=== PATIENT | female | born 2000 | race Caucasian/White ===

== ENCOUNTER 2020-12-26 09:40 | Emergency (ER) | payer OTHER, SELFPAY ==
--- NOTE | ~2020-12-26 | CT_ITS ---
EXAMINATION: CT abdomen pelvis w con EXAM DATE: 12/26/2020 10:53 INDICATION: Diarrhea and abdominal pain. TECHNIQUE: Spiral CT of the abdomen and pelvis was performed following intravenous injection of 100 m L Omnipaque 350. Axial, coronal and sagittal images were reviewed. The dose-length product (DLP) fo r this examination was 258.44 mGy-cm. The exposure was tailored according to patient size (auto mA e xposure control), and iterative reconstruction (ASIR) was used as additional dose reduction technique . There is no prior study for comparison. FINDINGS: The liver, spleen, adrenal glands and pancreas are unremarkable. Gallbladder is unremarkab le. No biliary obstruction. Portal and splenic veins are patent. Kidneys enhance symmetrically. T here is no hydronephrosis. The uterus is retroverted and morphologically normal. The bladder is u nremarkable. There is no retroperitoneal or pelvic lymphadenopathy. The appendix is normal. The stomach and small bowel are unremarkable. There is mild descending colo federico wall edema. There is rectosigmoid fluid, could be colitis and diarrhea. No free intraperitoneal gas. The heart is normal in size. There are no pericardial or pleural effusions. The lung bases are unremarkable. The bones are unremarkable. IMPRESSION: Findings consistent with descending colonic colitis, likely infectious. Diarrhea. Reviewed, dictated and finalized at location A. IMPRESSION: Findings consistent with descending colonic colitis, likely infecti ous. Diarrhea.
[2020-12-26 09:44] VITALS: BP 141/79; PULSE 86; RESP 20; TEMP 36.2; O2SAT 98
[2020-12-26 10:03] LABS: Basophils Percent Auto 0.4 % (0.2-1.2); Eosinophils Absolute Auto 0.2 K/mm3 (0-0.3); Eosinophils Percent Auto 1.7 % (0-4.4); Hematocrit 43.2 % (37.0-47.0); Hemoglobin 14.7 g/dL (12.0-15.0); Immature Granulocyte Absolute 0.02 K/mm3 (0.00-0.031); Immature Granulocyte Percent A 0.2 % (0-0.5); Lymphocytes Absolute Auto 2.12 K/mm3 (0.9-3.2); Lymphocytes Percent Auto 21.4 % (18.3-44.2); Mean Corpuscular Hemoglobin 28.9 pg (26-34); Mean Corpuscular Volume 84.9 fl (80-100); Mean Platelet Volume 10.1 fl (7.4-10.4); Monocytes Absolute Auto 0.7 K/mm3 (0.1-0.6); Monocytes Percent Auto 7.1 % (2.6-8.5); Neutrophils Absolute Auto 6.9 K/mm3 (1.3-6.7); Neutrophils Percent Auto 69.2 % (45.5-73.1); Platelet Count Result 346 k/mm3 (150-375); Red Blood Count 5.09 M/mm3 (4.2-5.4); White Blood Count 9.9 K/mm3 (4.5-10.0)
[2020-12-26 10:06] LABS: Add Urine Microscopic? YES; Appearance Urine Clear (Clear); Bilirubin Urine Negative (Negative); Blood Urine 1+ (Negative); Color Urine Yellow (Yellow); Glucose Urine UA Negative (Negative); Ketones Urine Negative (Negative); Leukocyte Esterase Ur Negative LEU/UL (Negative); Mucus Urine Rare /lpf; Nitrate Urine Negative (Negative); Protein Urine Negative (Negative); RBC Urine 0-2 /hpf (0-2); Specific Grav Ur 1.018 (1.001-1.035); Squamous Epithelial Cell Urine Rare /hpf (Few); Urobilinogen Urine Negative mg/dL (<2.0); WBC Urine 0-3 /hpf
[2020-12-26 10:15] LABS: Alanine Aminotransferase 16 U/L (4-35); Alkaline Phosphatase 47 U/L (38-126); Anion Gap 8 mmol/L (8-16); Aspartate Amino Transferase 25 U/L (14-36); Bilirubin,Total 0.6 mg/dL (0.2-1.3); Blood Urea Nitrogen 9 mg/dL (7-17); Calcium 9.2 mg/dL (8.4-10.2); Carbon Dioxide 29 mmol/L (22-30); Chloride 104 mmol/L (98-107); Estimated CRCL calculation 97 ml/min; Estimated Glomerular Filt Rate > 60; Glucose 93 mg/dL (65-105); Lipase 89 U/L (23-300); Sodium 141 mmol/L (137-145)
--- NOTE | 2020-12-26 11:13 | ED.GENADULT ---
HPI - General Adult General Chief complaint: Abdominal Pain Stated complaint: abd pain Time Seen by Provider: 12/26/20 09:50 Source: patient Mode of arrival: ambulatory Limitations: no limitations History of Present Illness HPI narrative: Patient presents with chief complaint of left lower abdominal pain that began last night. Patient states that she began having episodes of diarrhea initially began noticing blood in the diarrhea so she came to the emergency department. Patient denies fever, chills, nausea, vomiting. Patient states she has not had any episodes of diarrhea since being in emergency department. Patient denies having history of abdominal pain or diarrhea. Patient reports she takes control pills but denies any other daily medications or any chronic medical conditions. Patient denies any abdominal surgeries or complications in the past. Related Data Home Medications Medication Instructions Recorded Confirmed norgestimate-ethinyl estradiol tablet 12/26/20 [Tri-Linyah] Allergies Allergy/AdvReac Type Severity Reaction Status Date / Time No Known Allergies Allergy Verified 12/26/20 09:47 Review of Systems Review of Systems: Narrative: CONSTITUTIONAL: Denies fever, chills, or sweats. EYES: Denies visual changes, redness, or discharge. ENT: Denies rhinorrhea, congestion, sore throat, or otalgia. CARDIOVASCULAR: Denies chest pain, palpitations, or edema. RESPIRATORY: Denies cough or dyspnea. GASTROINTESTINAL: Reports left lower quadrant abdominal pain and diarrhea denies nausea, vomiting GENITOURINARY: Denies dysuria or hematuria. SKIN: Denies rash or itching. MUSCULOSKELETAL: Denies back pain, joint pain, or myalgia. NEUROLOGIC: Denies headache, numbness, dizziness, or weakness. PSYCHIATRIC: Denies anxiety or depression. [facility] Social History Social History Gender identity (if verbalized by the patient): Female Exam Narrative: Exam Narrative: GENERAL: Well-appearing, well-nourished, and in no acute distress. HEAD: Normocephalic, atraumatic. EYES: PERRLA and EOMI. ENT: Nares clear, no rhinorrhea or epistaxis. Mucous membranes moist. Oropharynx without tonsillar hypertrophy exudate or other lesions. Bilateral TMs pearly wyatt nonbulging NECK: Supple. No adenopathy or masses. Range of motion intact. CHEST: Clear to auscultation. No respiratory distress. No wheezes rales or rhonchi HEART: Regular rate and rhythm. No murmur heard. Normal peripheral pulses. ABDOMEN: Soft, tenderness palpation of the left lower quadrant, nondistended, normal active bowel sounds. EXTREMITIES: Normal range of motion. No edema. SKIN: Warm, dry, no rash. NEURO: No focal deficits. Alert and oriented x3. PSYCH: Normal mood and affect. Course Vital Signs Vital signs: Vital Signs Temperature 97.2 F L 12/26/20 09:44 Pulse Rate 86 12/26/20 09:44 Respiratory Rate 20 12/26/20 09:44 Blood Pressure 141/79 H 12/26/20 09:44 Pulse Oximetry 98 12/26/20 09:44 Temperature 98.2 F 12/26/20 11:36 Pulse Rate 76 12/26/20 11:36 Respiratory Rate 16 12/26/20 11:36 Blood Pressure 118/74 12/26/20 11:36 Pulse Oximetry 100 12/26/20 11:36 Medical Decision Making MDM Narrative Medical decision making narrative: Patient's white blood cell count and hemoglobin hematocrit are stable. Patient is stable and she is afebrile. Patient will be placed on Cipro and Flagyl and instructed to follow-up with primary care or GI specialist for further investigation. Hemoccult negative. Patient informed that if her symptoms persist she will need gi referrral for colonoscopy. Patient instructed to return to emergency department if she develops fever, chills, vomiting, profuse diarrhea or bleeding, or any other emergent symptoms. Differential Diagnosis Differential Diagnosis: Diverticulitis, colitis, viral gastroenteritis, kidney stone Vital Signs Vital Signs: Vital Signs Temperature 97.2 F L 12/26/20 09:44 Pulse
[2020-12-26 11:36] VITALS: BP 118/74; PULSE 76; RESP 16; TEMP 36.8; O2SAT 100
== END 2020-12-26 11:37 | disposition home or self-care (01) ==
PROVIDERS: Physician Assistant; Emergency Provider Emergency Medicine
DX: A09 Infectious gastroenteritis and colitis, unspecified (principal)
CPT/HCPCS: 36415; 74177; 80053; 81001; 81025; 83690; 85025; 96374; 99284; J0131; Q9967

== ENCOUNTER 2025-07-20 22:11 | Emergency (ER) | payer OTHER, SELFPAY ==
--- OUTSIDE RECORDS SUMMARY | 2025-05-20 04:45 | XMS_ITS ---
Author Organization [facility] [employer]Test [facility] Address [facility] [facility] [address] [facility] [address] [place] [address] Care Team Providers Care Shop Blacksmith Name Role Phone Eloisa Limon APRN Primary Care Provider Unava Tejal Narayan Unavailable [phone] REASON FOR VISIT psychiatry Social History Sex Assigned At : Social History Observation Description Sex Assigned At Female Encounters Encounter Location Date Provider Diagnosis [facility] [place] [address] [facility] [address] [place] [address] 05/20/2025 Tejal Rodríguez Plan Of Treatment No Information Progress Notes * GALEN JURADOOB:2000 (24 yo F)Acc No.[id number]:05/20/2025 Patient: SHANNAN OLIVEROS Provider: Shabbir Rodríguez :2000 A ge:24 Y S ex:Female Date:05/20/2025 Address:[address], [facility] Pcp:Eloisa Limon APRN Subjective: * Chief Complaints: * P sychiatry * Electronic signature of Tomy Rodríguez on 07/20/2025 at 10:13 PM CDT Sign off status: Pending * Provider: Shabbir Rodríguez Date: 0 05/20/2025 Generated for Printi ng/Faxing/eTransmitting on: 1 10:13 PM CDT
--- NOTE | ~2025-07-20 | XR_ITS ---
XR hand RT min 3V INDICATION: injury playing volleyball with swelling . COMPARISON: None. FINDINGS: Frontal, lateral, and oblique views of the right hand demonstrate no acute fracture or dislocation. IMPRESSION: Radiographic examination of the right hand demonstrates no acute fracture or dislocation. Reviewed, dictated and finalized at location S. IMPRESSION: Radiographic examination of the right hand demonstrates no acute fracture or di slocation.
--- OUTSIDE RECORDS SUMMARY | 2025-07-20 22:13 | XMS_ITS | Clinical Summary ---
Author Organization [facility] Address [facility] [place] [address] Care Team Providers Care Sprinkler Worker Name Role Phone None, Provider MD Primary Care Provider Unavaila ble Allergies No known active allergies Medications albuterol sulfate HFA 108 (90 Base) MCG/ACT inhaler Inhale 2 puffs into the lungs. 10/20/2024 Active lamoTRIgine (LAMICTAL) 150 MG tablet Take 1 tablet (150 mg total) by mouth daily. Active ZAFEMY 150-35 MCG/24HR packet Place 1 patch onto the skin once a week. 08/21/2024 Active Active Problems Problem Noted Date Diagnosed Date S/P repair of PDA (patent ductus arteriosus) 11/2017 Finger fracture 02/25/2014 Immunizations Immunization Administration Dates Next Due Dtap (Acel-Immune) 11/30/2003, 4,05/28/1999,03/27,01/25/1999 Dtap (Generic) 04/08/2000, 9,03/27/1999,01/25 Hepatitis B (Generic: Adult) 05/01/1999,01/25/19 99,1998 Hib Vaccine, Hboc 04/08/2000, 9,03/27/1999,01/25 Hib-Hepatitis B (Comvax) 05/28/1999,01/25/1999 MMR (MMRII) 11/30/2003,11/30/2003,04/08/2000 Meningococcal (Generic) 05/14/2010 Meningococcal (Menomune) 05/14/2010 PFIZER COVID-19 (ORIGINAL FO RMULATION, PURPLE CAP) mRNA, LNP-S, PF, 30 MCG/0.3 ML DOSE 01/10/2021,12/20/2020 PFIZER COVID-19 BIVALENT (12 +) mRNA, LNP-S, PF, 30 MCG/0.3 ML DOSE 07/28/2022 Polio IPV (Ipol) 11/30/2003,11/30/2003 Polio Opv (Generic) 04/08/2000,03/27/1999,1998 Tdap (Generic) 09/18/2020,05/14/2010,05/14/2010 Varicella (Varivax) 06/17/2013,06/17/2013,1999 Family History Medical History Relation Comments No Known Problems Brother Pancreatic cancer Father Esophageal cancer Maternal Grandfather No Known Problems Mother Breast Cancer Paternal Grandmother Seizures Sister Relation Status Comments Brother Alive Father Alive Maternal Grandfather Mother Alive Paternal Grandmother Sister Alive Social History Tobacco Use Types Packs/Day Years Used Date Smoking Tobacco: Never Smokeless Tobacco: Never Tobacco Cessation:Counseling Given: No PHQ-2 Answer Date Recorded Patient Health Questionnaire-2 Score 0 10/25/2024 Comments No Sex and Gender Information Value Date Recorded Sex Assigned at Female 10/25/2024 8:02 AM SWEEP PRESS OPERATOR Legal Sex Female 8:10 PM CDT Gender Identity Not on file Sexual Orientation Not on file Last Filed Vital Signs Vital Sign Reading Time Taken Comments Blood Pressure 118/78 10/25/2024 7:54 AM SWEEP PRESS OPERATOR Pulse 77 10/25/2024 7:54 AM SWEEP PRESS OPERATOR Temperature 35.4 C (95.8 F) 10/25/2024 7:54 AM SWEEP PRESS OPERATOR Respiratory Rate 12 10/25/2024 7:54 AM SWEEP PRESS OPERATOR Oxygen Saturation 99% 10/25/2024 7:54 AM SWEEP PRESS OPERATOR Inhaled Oxygen Concentration - - Weight 61.7 kg (136 lb) 10/25/2024 7:54 AM SWEEP PRESS OPERATOR Height 172.7 cm (5' 8) 10/25/2024 7:54 AM SWEEP PRESS OPERATOR Body Mass Index 20.68 10/25/2024 7:54 AM SWEEP PRESS OPERATOR Plan of Treatment Health Maintenance Due Date Last Done Comments Annual Physical 2001 HPV Vaccines (1 - 3-dose series) 2013 Hepatitis C 2016 Cervical Cancer Screening Pap Smear (Age 21 to 29) Every 3 Years 11/06/2024 11/06/2021 Cervical Cancer Screening 11/06/2024 COVID-19 Vaccine ( season) 2025 07/28/2022, 01/10/2021, 12/20/2020 Influenza Adult (#1) 2025 DTaP, Tdap and Td Vaccines (9 - Td or Tdap) 09/18/2030 09/18/2020, 05/14/2010, 05/14/2010, Additional history exists Hepatitis B Vaccines Completed 05/28/1999, 05/01/1999, 01/25/1999, Additional history exists Meningococcal Vaccine Aged Out 05/14/2010, 010 No longer eligible based on patient's age to complete this topic PHQ-2 (Physician [place]) Completed 10/25/2024 Hepatitis A Vaccines Aged Out No long er eligible based on patient's age to complete this topic Meningococcal B Vaccine Aged Out No l onger eligible based on patient's age to complete this topic Pneumococcal Vaccine: Pediatrics (0 to 5 Years) and At-Risk Patients (6 to 49 Years) Aged Out No longer eligible based on patient's age to complete this topic RSV Immunizations Under 20 Months Aged Out No longer eligible based on patient's age to complete this topic Insurance [facility] Care Teams Sprinkler Worker Relationship Specialty Start Date End Date None, Provider, PCP - General 11/02/19
--- OUTSIDE RECORDS SUMMARY | 2025-07-20 22:14 | XMS_ITS | Patient Health Record ---
Author Organization [facility] As [employer] Address [address] [place] [address] Care Team Providers Care Track Laying Supervisor Name Role Phone Eloisa Limon APRN Primary Care Provider Tejal Zapata Unavailable [phone] Jose Rivera Unavailable [phone] Allergies No Known Allergies Reason For Referral No Information Medications Medication SIG (Take, Route, Frequency, Duration) Notes Start Date End Date Status predniSONE 10 MG Tablet Oral; Duration: 7 Days Not-Taking Benzonatate 100 MG Capsule Oral; Duration: 7 Days Active ZAFEMY 150 MCG-35 MCG/24 HR TRANSDERMAL PATCH *Reorder from [employer] for eRx and Interaction Alerts* 01/29/2024 Active lamoTRIgine 150 MG Tablet 1 tablet Oral once a day; Duration: 90 days Active Social History Tobacco Use: Social History Observation Description Date Details (start date - stop date) Never Smoker NA - NA Sex Assigned At : Social History Observation Description Sex Assigned At Female Social History Miscellaneous: Social Info Question Answer Notes Advance Care Planning Are you your own decision-maker Yes Do you have Power of Environmental Health Technician for Health or Medi karthik? No Education: Highest achieved level of education Master's Degree Safety issues: Are there any firearms in the house? No Social History Social Info Question Answer Notes Household: Marital Status: Single Number of Adults in household: 1 Number of Children in Household: 0 Level of Education: Professional Schools/Masters /PhD Household: Social Info Question Answer Notes Household Marital status: single Number of adults in household: 1 Drug/Alcohol: Social Info Question Answer Notes Drugs Have you used drugs other than those for medical reasons in the past 12 months? Yes Methamphetamine? No Crack? No LSD? No Ecstacy? No Prescription opiates? No Marijuana? Yes Ketamine? No PCP? No Is there a minor (18 years or younger) at risk at home? No Are you still using? No AUDIT-C (Standard) Did you have a drink containing alcohol in the past year? 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 Yes Problems Problem Type SNOMED Code ICD Code Onset Dates Problem Status W/U Status Risk Notes Problem Bipolar II disorder (08414562) Bipolar II disorder (F31.81) Active confirmed Vital Signs Heart Rate 88 /min 01/28/2025 Height-cm 172.72 cm 01/28/2025 Blood pressure diastolic 82 mm Hg 01/28/2025 Weight-kg 59.87 kg 01/28/2025 Height 68.00 in 01/28/2025 Blood pressure systolic 129 mm Hg 01/28/2025 Weight 132 lbs 01/28/2025 BMI 20.07 kg/m2 01/28/2025 Encounters Encounter Location Date Provider Diagnosis [facility] [place] [address] [address] 08/05/2024 Thena Miguel Bipolar II disorder F31.81 [facility] [place] [facility] [address] [address] 11/05/2024 Thena Miguel Bipolar II disorder F31.81 [facility] [place] [facility] [address] [address] 01/28/2025 Tejal Rodríguez Bipolar II disorder F31.81 ; Negative depression screening Z13.31 ; Marijuana use F12.90 and Encounter for screening for cardiovascular disorders Z13.6 [facility] [place] [facility] [address] [address] 04/29/2025 Tejal Rodríguez Assessments Encounter Date Diagnosis (ICD Code) Assessment Notes Treatment Notes Treatment Clinical Notes Section Notes 11/05/2024 Bipolar II disorder (ICD-10 - F31.81) 08/05/2024 Bipolar II disorder (ICD-10 - F31.81) 01/28/2025 Bipolar II disorder (ICD-10 - F31.81) 01/28/2025 Marijuana use (ICD-10 - F12.90) 01/28/2025 Negative depression screening (ICD-10 - Z13.31) 01/28/2025 Encounter for screening for cardiovascular disorders (ICD-10 - Z13.6) 01/28/2025 Eliana Horowitz is a female patient with a history of bipolar disorder with hypomania, presenting for follow-up management of her condition. Bipolar Disorder with Hypomania Assessment: Patient reports overall stable mood on current medication regimen of lamotrigine 150 mg daily. She notes occasional days of increased anger and irritability, but these episodes are generally short-lived. Patient has a family history of bipolar disorder (mother). Previously diagnosed with major depressive disorder with anxiety, but current presentation and history are more consistent with bipolar disorder. Patient reports past hypomanic episodes were brief, while depressive episodes were prolonged. No current suicidal ideation or past suicide attempts. No psychiatric hospitalizations. Patient has maintained sobriety from alcohol for 432 days, with a history of problematic drinking and family history of substance use disorders. Plan: - Continue lamotrigine 150 mg PO daily, taken at night - Monitor for any changes in mood, particularly episodes of increased irritability or anger - Maintain current follow-up schedule of every 3 months - Encourage continued abstinence from alcohol - Follow up in 3 months or sooner if symptoms worsen Cannabis Use Assessment: Patient reports daily use of THC (tetrahydrocannabi nol). Given the patient's history of bipolar disorder and family history of substance use disorders, this daily cannabis use warrants monitoring for potential impact on mood stability and overall mental health. Plan: - Discuss potential risks and benefits of daily cannabis use in the context of bipolar disorder - Monitor for any changes in mood or psychiatric symptoms related to cannabis use - Reassess cannabis use at future appointments Plan Of Treatment No Information Insurance Providers Payer Name Payer Address Payer Phone Subscriber Number Group Number Insured Name Patient Relationship to Insured Coverage Start Date Coverage End Date [employer] - [employer] [address] [place] [address] [id number] SHANNAN HOROWITZ Self - patient is the insured Medical (General) History Medical History History ICD Code Problems: Bipolar II disorder Patent Ductus Arteriosus, surgically rep aired Past Psychiatric History: Major Depressi ve Episode,Bipolar Disorder undefined Surgical History Surgery Date(Month/Year) Patent Ductus Arteriosus repair 06/30/20 03 Neurogenic thoracic outlet surgery 07/10 Hospitalization History Reason Date(Month/Year) surgical
[2025-07-20 22:18] VITALS: BP 133/74; PULSE 86; RESP 14; TEMP 36.7; O2SAT 98
--- NOTE | 2025-07-20 22:52 | ED.UPPEXIN ---
HPI - Extremity Injury (Upper) General Chief Complaint: Extremity Injury, Upper Stated Complaint: R hand injury Time Seen by Provider: 07/20/25 22:16 History of Present Illness HPI narrative: Patient is a 24-year-old female who presents to the ER after sustaining an injury while playing volleyball. She reports she spike the ball when she heard something snap and felt immediate pain. Patient reports the area is now swollen and bruised. She also endorses decreased range of motion. Patient endorses a history of bipolar disorder and is medicated. She denies any other relevant medical history. Patient denies any decreased range of motion in her 2nd 3rd 4th or 5th digits, recent fevers, or numbness/tingling. Related Data Home Medications ?Medication ?Instructions ?Recorded ?Confirmed ?Last Taken ?Type norgestimate-ethinyl estradiol tablet 12/26/20 Unknown History 0.18mg/0.215mg/0.25mg-0.035mg(28)tablet (Tri-Linyah) Allergies Allergy/AdvReac Type Severity Reaction Status Date / Time No Known Allergies Allergy Verified 07/20/25 22:12 Review of Systems Review of Systems: All systems reviewed & are unremarkable except as noted in HPI and below PMFSH Social History Social History Gender identity (if verbalized by the patient): Female Exam Narrative: GENERAL: Well appearing, well-nourished, non-toxic, in no acute distress. HEAD: Normocephalic, atraumatic. NECK: Supple. No adenopathy, no masses. RESPIRATORY: Airway patent, respirations nonlabored. Clear to auscultation bilaterally, no rales, rhonchi, wheezing. CARDIOVASCULAR: Regular rate and rhythm without murmurs, rubs, or gallops. Peripheral pulses 2+ and equal bilaterally. ABDOMINAL: Soft, nontender, nondistended, no hepatosplenomegaly. Normoactive BS. MUSCULOSKELETAL: Moves all extremities. Positive snuffbox tenderness. Increased pain with extension and manipulation of right thumb. Positive swelling and bruising to site. SKIN: Warm, dry, normal color. No rashes. NEURO: A&O X3. Speech clear. Cranial nerves II-XII intact. No ataxic movements. PSYCHIATRIC: Appropriate mood and affect. Normal interaction. Course Vital Signs Vital signs: Vital Signs Temperature 36.7 C 07/20/25 22:18 Pulse Rate 86 07/20/25 22:18 Respiratory Rate 14 07/20/25 22:18 Blood Pressure 133/74 07/20/25 22:18 Pulse Oximetry 98 07/20/25 22:18 Oxygen Delivery Room Air 07/20/25 22:18 Temperature 36.7 C 07/20/25 22:18 Pulse Rate 86 07/20/25 22:18 Respiratory Rate 14 07/20/25 22:18 Blood Pressure 133/74 07/20/25 22:18 Pulse Oximetry 98 07/20/25 22:18 Oxygen Delivery Room Air 07/20/25 22:18 Procedures Orthopedic Splinting/Casting Injury #1: Splinting/Casting Date: 07/20/25 Splinting/Casting Time: 23:22 Side: right Upper Extremity Injury Location: wrist Upper Extremity Immobilizer: thumb spica Splint: customized in ED OCL: thumb spica Pre-Procedure Neuro Vascular Exam: normal Post-Procedure Neuro Vascular Exam: normal MDM - Extremity Injury (Upper) MDM Narrative Medical decision making narrative: Patient is a 24-year-old female who presents to the ER after sustaining an injury while playing volleyball. She reports she spike the ball when she heard something snap and felt immediate pain. Patient reports the area is now swollen and bruised. She also endorses decreased range of motion. Patient endorses a history of bipolar disorder and is medicated. She denies any other relevant medical history. Patient denies any decreased range of motion in her 2nd 3rd 4th or 5th digits, recent fevers, or numbness/tingling. Imaging Ordered: Right hand x-ray Medications Ordered: Toradol 60 mg IM Results: Pt's x-ray indicates Radiographic examination of the right hand demonstrates no acute fracture or dislocation. Diagnosis: Right hand hematoma, right wrist pain, + snuffbox tenderness Consults: Orthopedic surgery (outpatient) Patient Education/Shared MDM: Results of imaging shared with patient. She endorses improvement of symptoms following Toradol medication administration. Patient strongly advised to keep her splint on for the next 4-5 days. + CWMS after splint was placed. If her symptoms have not improved she should follow-up with Orthopedic surgery. She will be discharged home with a prescription for [place]. Strict return precautions provided. Patient verbalized understanding and is in agreement with plan. Vital signs stable at time of discharge. All questions answered. Differential Diagnosis Differential diagnosis: Likely sprain and strain of wrist, fracture of wrist and fracture of hand Imaging Data Attestation: I personally reviewed and interpreted this imaging study as follows: Radiologist's impression: Impressions Hand X-Ray 07/20/25 22:45 IMPRESSION: Radiographic examination of the right hand demonstrates no acute fracture or dislocation. Discharge Plan Discharge Clinical Impression: Sprain and strain of wrist, Tenderness of anatomical snuffbox, Hematoma of right wrist Patient Disposition: Home Condition: Stable Instructions: Antibiotic Form, Splint Care (ED) Additional Instructions: Please return to the ER with any worsening symptoms. Follow-up with Orthopedic surgery and 4-5 days if your symptoms have not improved. Take all medications as prescribed, including regularly scheduled medications. You may take ibuprofen and/or [place] as needed for pain control. Please continue to ice the site. Patient Language: Solomon Islander Prescriptions: New hydrocodone-acetaminophen 5-325 mg tablet 1 tablet PO Q6H PRN (Reason: pain) Qty: 14 0RF No Action norgestimate-ethinyl estradiol [Tri-Linyah] 0.18/0.215/0.25 mg-35 mcg (28) tablet ciprofloxacin HCl [Cipro] 500 mg tablet 500 mg PO Q12H Qty: 20 0RF metronidazole [Flagyl] 500 mg tablet 500 mg PO Q8H 10 Days Qty: 30 0RF hydrocodone-acetaminophen 5-325 mg tablet 1 tablet PO Q8H PRN (Reason: pain) Qty: 7 0RF Follow-up/Referrals: Colton Strong MD [Physician, Orthopedics] Referral Note: orthopedic surgery PHYSICIAN NOT ON STAFF,NONSTAFF [Non-Staff] Stand Alone Forms: Work/School Release IP Time of Disposition: 23:22
--- OUTSIDE RECORDS SUMMARY | 2025-07-20 22:53 | XMS_ITS | Clinical Summary ---
Author Organization [facility] Address [facility] [place] [address] Care Team Providers Care Client Liaison Name Role Phone None, Provider MD Primary [...] Sex Assigned at Female 10/25/2024 8:02 AM CELLOPHANER Legal Sex Female 8:10 PM CDT Gender Identity Not on file Sexual Orientation Not on file Last Filed Vital Signs Vital Sign Reading Time Taken Comments Blood Pressure 118/78 10/25/2024 7:54 AM CELLOPHANER Pulse 77 10/25/2024 7:54 AM CELLOPHANER Temperature 35.4 C (95.8 F) 10/25/2024 7:54 AM CELLOPHANER Respiratory Rate 12 10/25/2024 7:54 AM CELLOPHANER Oxygen Saturation 99% 10/25/2024 7:54 AM CELLOPHANER Inhaled Oxygen Concentration - - Weight 61.7 kg (136 lb) 10/25/2024 7:54 AM CELLOPHANER Height 172.7 cm (5' 8) 10/25/2024 7:54 AM CELLOPHANER Body Mass Index 20.68 10/25/2024 7:54 AM CELLOPHANER Plan of Treatment Health Maintenance Due Date [...] age to complete this topic PHQ-2 (Physician Truchas) Completed 10/25/2024 Hepatitis A Vaccines Aged Out [...] patient's age to complete this topic Insurance [facility] Care Teams Client Liaison Relationship Specialty Start Date End Date None, Provider, PCP - General 11/02/19
[2025-07-20] MEDS: KETOROLAC (*BKC) 60 MG/2 ML VIAL IM (23:07)
== END 2025-07-20 23:35 | disposition home or self-care (01) ==
PROVIDERS: Emergency Provider Registered Nurse
DX: S63.501A Unspecified sprain of right wrist, initial encounter (principal); S60.211A Contusion of right wrist, initial encounter; W21.06XA Struck by volleyball, initial encounter; Y93.68 Activity, volleyball (beach) (court)
CPT/HCPCS: 29125; 73130; 96372; 99283; J1885